=== PATIENT | female | born 1980 ===

== ENCOUNTER 2025-02-14 11:45 | Inpatient (IN) | payer OTHER ==
[~2025-02-14] VITALS: Ht 165.1 cm; Wt 70.3 kg
[2025-02-14 13:02] LABS: BASO % 0.8 % (0.1-1.2); EOS # 0.04 (0.04-0.54); EOS % 0.4 % (0.7-7.0); LYMPH # 2.18 (1.18-3.74); LYMPH % 20.8 % (19.3-53.1); MEAN PLATELET VOLUME 9.70 fl (9.4-12.4); MONO # 0.78 (0.24-0.82); MONO % 7.4 % (4.7-12.5); NEUT # 7.34 (1.56-6.13); NEUT % 70.1 % (34.0-71.1); RED CELL DISTRIBUTION WIDTH 15.7 % (11.6-14.4)
[2025-02-14 13:04] LABS: URINE APPEARANCE Clear; URINE BILIRRUBIN Negative (NEGATIVE); URINE BLOOD Trace; URINE COLOR Yellow; URINE GLUCOSE Negative (NEGATIVE); URINE KETONE Negative (NEGATIVE); URINE LEUKOCYTE Negative; URINE NITRATE Negative; URINE PROTEIN Negative (NEGATIVE); URINE UROBILINOGEN 0.2 E.U./dl
[2025-02-14 13:05] LABS: URINE BACTERIA 8.3 uL (0.0-1933); URINE EPITHELIAL CELLS 1.6 uL (0.0-38.8); URINE RBC 4.5 uL (0.0-20.8); URINE WBC 2.1 uL (0.0-23.2)
[2025-02-14 13:13] LABS: URINE CAST 0.14 uL (0.0-1.40)
[2025-02-14 13:22] LABS: INR 1.0
[2025-02-14 13:23] VITALS: BP 130/70; BP 136/82
[2025-02-14] MEDS ORDERED: ZESTRIL40 M1 PO (13:23)
[2025-02-14 13:42] LABS: ALT/SGPT 22.0 U/L (12-78); AST/SGOT 10.0 U/L (15-37); BILIRUBIN TOTAL 0.41 mg/dL (0.3-1.2); BUN CREA RATIO 15.0 (7.0-25.0); CREATININE SERUM 0.53 mg/dL (0.55-1.02); GFR 125.32; GLOBULINA 3.1 G/DL (2.4-3.5); GLUCOSE FASTING 86.0 mg/dL (65-100); OSMOLALITY SERUM 279.0 MOSM/KG (275-295)
[2025-02-19] MEDS ORDERED: CEFAZOLIN SODIUM 1,000 MG VIAL ONE (11:36)
[2025-02-19] MEDS ORDERED: POVIDONE-IODINE 118 ML BOTT TOP ONE (11:36)
[2025-02-19] MEDS ORDERED: MORPHINE SULFATE 4 MG/ML VIAL IV ONE ×2 (14:50→17:20)
[2025-02-19] MEDS ORDERED: MORPHINE SULFATE 4 MG/ML CARTRIDGE IV SCH (16:00)
[2025-02-19] MEDS ORDERED: PROMETHAZINE HCL 25 MG/ML AMPUL IV SCH (16:00)
[2025-02-19 17:51] LABS: BASO % 0.3 % (0.1-1.2); EOS # 0.00 (0.04-0.54); EOS % 0.0 % (0.7-7.0); LYMPH # 1.59 (1.18-3.74); LYMPH % 8.7 % (19.3-53.1); MEAN PLATELET VOLUME 9.50 fl (9.4-12.4); MONO # 1.01 (0.24-0.82); MONO % 5.5 % (4.7-12.5); NEUT # 15.59 (1.56-6.13); NEUT % 85.2 % (34.0-71.1); RED CELL DISTRIBUTION WIDTH 15.0 % (11.6-14.4)
[2025-02-19 18:33] VITALS: BP 130/70
[2025-02-19] MEDS ORDERED: SIMETHICONE 125 MG CAPSULE PO SCH (21:00)
[2025-02-19] MEDS ORDERED: GABAPENTIN 300 MG CAPSULE PO SCH (21:00)
[2025-02-20 01:16] VITALS: BP 130/75
[2025-02-20 09:00] VITALS: BP 94/54
[2025-02-20] MEDS ORDERED: TRAMADOL HCL 50 MG TABLET PO PRN (09:00)
[2025-02-20 09:20] LABS: BASO % 0.3 % (0.1-1.2); EOS # 0.02 (0.04-0.54); EOS % 0.1 % (0.7-7.0); LYMPH # 2.16 (1.18-3.74); LYMPH % 11.0 % (19.3-53.1); MEAN PLATELET VOLUME 10.20 fl (9.4-12.4); MONO # 1.50 (0.24-0.82); MONO % 7.7 % (4.7-12.5); NEUT # 15.77 (1.56-6.13); NEUT % 80.6 % (34.0-71.1); RED CELL DISTRIBUTION WIDTH 15.1 % (11.6-14.4)
[2025-02-20 09:44] LABS: BUN CREA RATIO 9.0 (7.0-25.0); CREATININE SERUM 0.53 mg/dL (0.55-1.02); GFR 125.32; GLUCOSE FASTING 98.0 mg/dL (65-100); OSMOLALITY SERUM 280.0 MOSM/KG (275-295)
[2025-02-20 09:49] LABS: URINE APPEARANCE Clear; URINE BILIRRUBIN Negative (NEGATIVE); URINE BLOOD Moderate; URINE COLOR Yellow; URINE GLUCOSE Negative (NEGATIVE); URINE KETONE Negative (NEGATIVE); URINE LEUKOCYTE Small; URINE NITRATE Negative; URINE PROTEIN Negative (NEGATIVE); URINE UROBILINOGEN 0.2 E.U./dl
[2025-02-20 09:55] LABS: URINE BACTERIA 10.7 uL (0.0-1933); URINE EPITHELIAL CELLS 6.3 uL (0.0-38.8); URINE RBC 493.9 uL (0.0-20.8); URINE WBC 56.3 uL (0.0-23.2)
[2025-02-20 10:14] LABS: URINE CAST 0.00 uL (0.0-1.40)
[2025-02-20 16:11] VITALS: BP 100/62
[2025-02-20 21:11] VITALS: BP 102/67
[2025-02-21 00:29] VITALS: BP 100/62
[2025-02-21 05:51] VITALS: BP 100/65
[2025-02-21] MEDS ORDERED: GABAPENTIN300 MG PO (06:39)
[2025-02-21] MEDS ORDERED: SIMETHICONE125 M1 PO (06:39)
[2025-02-21 07:59] VITALS: BP 110/67
== END 2025-02-21 10:32 | disposition home or self-care (01) | DRG 743 ==
LOC: SURH 02-19 11:45 → OB/GYN 02-19 13:32 → O/R 02-19 13:32 → OB/GYN 02-19 15:25 → SURH 02-19 16:00 → OB/GYN 02-21 10:32
PROVIDERS: ADMIT Obstetrics & Gynecology; ATTEND Obstetrics & Gynecology
PROC: 0UT9FZZ Resection of Uterus, Via Natural or Artificial Opening With Percutaneous Endoscopic Assistance (ICD-10-PCS; principal; 2025-02-19 16:00)
DX: N80.03 Adenomyosis of the uterus (principal); N72 Inflammatory disease of cervix uteri